=== PATIENT | male | born 1990 | race Caucasian/White ===

== ENCOUNTER 2020-01-19 07:11 | Emergency (ER) | payer SELFPAY ==
[2020-01-19 07:39] VITALS: BP 129/72
--- NOTE | 2020-01-19 08:29 | ER Document Report ---
ED General - General Chief Complaint: Skin Problem Stated Complaint: ANKLE PAIN Time Seen by Provider: 01/19/20 08:24 Notes: Patient presents with pain and redness and swelling of the left ankle. Few days ago he got a bunch of fire ant bites and since then has had worsening redness and swelling for 1 day despite the fire ant bites actually improving. Associate with mild edema. No fever. Not a diabetic. No history of DVT. - Related Data Allergies/Adverse Reactions: Penicillins Allergy (Verified 01/19/20 07:35) Past Medical History - General Information source: Patient - Social History Smoking Status: Never Smoker Frequency of alcohol use: None Drug Abuse: None Family History: None Review of Systems - Review of Systems Notes: REVIEW OF SYSTEMS GEN: Denies fever, chills, weight loss ENT: Denies sore throat, nasal discharge, ear pain EYES: Denies blurry vision, eye pain, discharge CV: Denies chest pain, palpitations, edema RESP: Denies cough, shortness of breath, wheezing GI: Denies abdominal pain, nausea, vomiting, diarrhea MSK: Denies joint pain/swelling, edema, SKIN: See HPI LYMPH: Denies swollen glands/lymph nodes NEURO: Denies headache, focal weakness or numbness, dizziness PSYCH: Denies depression, suicidal or homicidal ideation PHYSICAL EXAMINATION General: No acute distress, well-nourished Head: Atraumatic, normocephalic ENT: Mouth normal, oropharynx moist, no exudates or tonsillar enlargement Eyes: Conjunctiva normal, pupils equal, lids normal Neck: No JVD, supple, no guarding CVS: Normal rate, regular rhythm, no murmurs Resp: No resp distress, equal and normal breath sounds bilaterally GI: Nondistended, soft, no tenderness to palpation, no rebound or guarding Ext: No deformities, no edema, normal range of motion in upper and lower ext Back: No CVA or midline TTP Skin: Resolving ant bites on the left ankle with confluent erythema and edema from the dorsal midfoot to the distal calf m Lymphatic: No lymphadeopathy noted Neuro: Awake, alert. Face symmetric. GCS 15. Physical Exam - Vital signs Vitals: Temp Pulse Resp BP Pulse Ox 98.8 F 81 16 129/72 H 98 01/19/20 07:36 01/19/20 07:36 01/19/20 07:36 01/19/20 07:36 01/19/20 07:36 Course - Re-evaluation Re-evalutation: 01/19/20 14:43 Cellulitis secondary to fire ant bites Antibiotics elevation No signs of sepsis or DVT I have discussed with the patient there likely diagnosis, aftercare plan, follow-up plans and my usual and customary return precautions. They verbalized understanding of this. - Vital Signs Vital signs: Temp Pulse Resp BP Pulse Ox 98.8 F 81 16 129/72 H 98 01/19/20 07:36 01/19/20 07:36 01/19/20 07:36 01/19/20 07:36 01/19/20 07:36 Discharge - Discharge Clinical Impression: Cellulitis of left leg Condition: Good Disposition: HOME, SELF-CARE Instructions: Cellulitis ([facility]) Prescriptions: Doxycycline Hyclate 100 mg PO BID #14 tablet. Cephalexin Monohydrate [Keflex 500 mg Capsule] 500 mg PO Q6H 7 Days capsule Forms: Return to Work
== END 2020-01-19 08:36 | disposition home or self-care (01) ==
LOC: ER 07:11
DX: L03.116 Cellulitis of left lower limb (principal); M25.572 Pain in left ankle and joints of left foot; R60.0 Localized edema; W57.XXXA Bitten or stung by nonvenomous insect and other nonvenomous arthropods, initial encounter; Z88.0 Allergy status to penicillin
CPT/HCPCS: 99283